=== PATIENT | female | born 1990 | race Caucasian/White ===

== ENCOUNTER 2020-09-22 09:11 | Day surgery (SDC) | payer BC ==
[~2020-09-22] VITALS: Ht 157.5 cm; Wt 55.0 kg
[2020-09-22 09:48] VITALS: BP 106/73
[2020-09-22 09:51] LABS: BASOPHILS % (AUTO) 1 % (0-1); EOSINOPHILS % (AUTO) 0 % (1-7); LYMPHOCYTES % (AUTO) 20 % (22-44); MEAN CORPUSCULAR HEMOGLOBIN 31.8 pg (27.0-34.8); MEAN PLATELET VOLUME 8.6 fL (7.4-10.4); MONOCYTES % (AUTO) 12 % (2-9); NEUTROPHILS % (AUTO) 67 % (42-75); PLATELET COUNT 202 x10^3/uL (130-400); RED BLOOD COUNT 4.24 x10^6/uL (3.82-5.3); RED CELL DISTRIBUTION WIDTH 12.1 % (9.6-15.2)
[2020-09-22 09:52] LABS: MD NO
[2020-09-22] MEDS ORDERED: PLEASE ENTER ALLERGIES MC SCH (10:00)
[2020-09-22] MEDS ORDERED: CHLORHEXIDINE 15 ML UDC MM ONE (10:00)
[2020-09-22] MEDS ORDERED: DOXYCYCLINE 100MG TABLET PO ONE (10:00)
[2020-09-22] MEDS ORDERED: LACTATED RINGERS 1,000 ML IV SCH (10:00)
[2020-09-22] MEDS ORDERED: PLEASE ENTER HEIGHT AND WEIGHT MC SCH (10:00)
[2020-09-22] MEDS ORDERED: CHLORHEXIDINE 15 ML UDC ONE (10:03)
[2020-09-22 10:05] LABS: MICROSCOPIC INDICATED
[2020-09-22] MEDS ORDERED: MISOPROSTOL 200 MCG TABLET ONE ×2 (11:21→12:51)
[2020-09-22] MEDS ORDERED: OXYTOCIN 10 UNITS/ML, 1ML ONE (11:21)
[2020-09-22] MEDS ORDERED: SILVER NITRATE STICK TP ONE (11:22)
[2020-09-22] MEDS ORDERED: METHYLERGONOVINE 0.2 MG/ML IM ONE (11:22)
[2020-09-22] MEDS ORDERED: MIDAZOLAM 1 MG/ML, 2ML ONE (12:00)
[2020-09-22] MEDS ORDERED: FENTANYL PF 100 MCG/2ML ONE ×2 (12:00→13:37)
[2020-09-22] MEDS ORDERED: PROPOFOL 10 MG/ML, 20ML ONE (12:40)
[2020-09-22] MEDS ORDERED: ROCURONIUM 10MG/ML,5ML ONE (12:40)
[2020-09-22] MEDS ORDERED: CEFAZOLIN 1,000 MG ONE (12:40)
[2020-09-22] MEDS ORDERED: SUCCINYLCHOLINE 20 MG/ML, 10ML ONE (12:40)
[2020-09-22] MEDS ORDERED: GLYCOPYRROLATE 0.2MG/1ML, 5ML ONE (12:40)
[2020-09-22] MEDS ORDERED: NEOSTIGMINE 1 MG/ML, 10ML ONE (12:40)
[2020-09-22] MEDS ORDERED: DEXAMETHASONE 4 MG/ML, 1ML ONE (12:40)
[2020-09-22] MEDS ORDERED: ONDANSETRON 2MG/ML, 2ML ONE (12:40)
[2020-09-22] MEDS ORDERED: HYDROcodone/APAP 7.5-325MG/15ML UDC PO PRN (13:00)
[2020-09-22] MEDS ORDERED: HYDROmorphone 1 MG/ML, 1ML INJ IVPush PRN (13:00)
[2020-09-22] MEDS ORDERED: MEPERIDINE/PF 25MG/0.5ML IVPush PRN ×2 (13:00→13:30)
[2020-09-22] MEDS ORDERED: hydrALAzine 20 MG/ML, 1ML IV PRN (13:00)
[2020-09-22] MEDS ORDERED: HALOPERIDOL 5 MG/ML IV PRN (13:00)
[2020-09-22] MEDS ORDERED: OXYcodone 5 MG/5 ML ORAL.SOL UDC PO PRN (13:00)
[2020-09-22] MEDS ORDERED: LABETALOL 5MG/ML, 20ML IV PRN (13:00)
[2020-09-22] MEDS ORDERED: DIPHENHYDRAMINE 50 MG/ML, 1ML IVPush PRN (13:00)
[2020-09-22] MEDS ORDERED: PROMETHAZINE 25 MG/ML, 1ML IVPush PRN (13:00)
[2020-09-22] MEDS ORDERED: SUGAMMADEX 200 MG/2 ML IVPush ONE (13:02)
[2020-09-22] MEDS ORDERED: MEPERIDINE/PF 25MG/ML,1ML ONE (13:09)
[2020-09-22] MEDS ORDERED: PROMETHAZINE 25 MG/ML, 1ML ONE (13:32)
[2020-09-22] MEDS: FENTANYL PF 100 MCG/2ML IV PRN ×2 (13:39→13:49)
[2020-09-22] MEDS ORDERED: KETOROLAC 30 MG/1 ML IVPush ONE (16:00)
== END 2020-09-22 16:50 | disposition home or self-care (01) ==
LOC: OUT 09:11
PROVIDERS: ATTEND Student in an Organized Health Care Education/Training Program
DX: O02.0 Blighted ovum and nonhydatidiform mole (principal); Z20.828 Contact with and (suspected) exposure to other viral communicable diseases; Z79.899 Other long term (current) drug therapy
CPT/HCPCS: 36415; 59820; 76830; 81001; 85014; 85018; 85025; 86850; 86900; 87086; 87635; 88305; J0330; J1100; J1885; J2175; J2210; J2250; J2405; J2550; J2704; J3010; J7120; J0690; J2710; J2590